=== PATIENT | female | born 1980 | race Caucasian/White ===

== ENCOUNTER 2018-10-16 10:11 | Outpatient (CLI) | payer BC ==
[~2018-10-16] VITALS: Ht 165.1 cm; Wt 70.5 kg
[~2018-10-16 10:11] MED LIST: IBU800 M1 PO; PERCOCET 325 MG1 TA2 PO
--- NOTE | 2018-10-16 10:15 | NUR ---
1015-35.5 WEEK G2L1 PATIENT OF DR. CARDENAS AMBULATORY TO LR4 FOR PREVIOUSLY ORDERED SECOND DOSE OF 12MG IM BETAMETHESONE. PLACED ON EFM. ASSESSMENT COMPLETE. 1047-12MG IM BETAMETHESONE GIVEN IN LEFT GLUTEAL 1100-DR. DAVILA ON UNIT, REVIWES EFM INTO SEE PATIENT. ORDERS TO DISCHARGE PATIENT AFTER 15 MIN REACTIVE STRIP. 1110-PATIENT OFF EFM. 1117-REVIEWED DISCHARGE INSTRUCTIONS. PATIENT AMBULATORY OFF UNIT.
[2018-10-16 10:30] VITALS: BP 127/85; PULSE 74; TEMP 98.1
[2018-10-16] MEDS ORDERED: PRENATAL (10:41)
[2018-10-16] MEDS ORDERED: CELESTONE30 MG/5 ML IM (10:41)
[2018-10-16 10:45] VITALS: BP 127/85; PULSE 74; TEMP 98.1
[2018-10-16 11:10] VITALS: BP 118/72; PULSE 82
== END 2018-10-16 11:17 | disposition home or self-care (01) ==
LOC: LDRO 10:11 → LDR 10:15 → LDRO 11:17
DX: O36.8930 Maternal care for other specified fetal problems, third trimester, not applicable or unspecified (principal); Z3A.35 35 weeks gestation of pregnancy
CPT/HCPCS: OP; J0702

== ENCOUNTER 2018-12-05 00:33 | Emergency (ER) | payer BC ==
[~2018-12-05] VITALS: Ht 165.1 cm; Wt 63.6 kg
[~2018-12-05 00:33] MED LIST changes: +CELESTONE30 MG/5 ML IM; +PRENATAL
[2018-12-05 00:45] VITALS: BP 115/78; TEMP 97.1
[2018-12-05 03:57] VITALS: PULSE 86
== END 2018-12-05 03:55 | disposition home or self-care (01) ==
LOC: COL.ER 00:33
DX: S90.31XA Contusion of right foot, initial encounter (principal); W22.8XXA Striking against or struck by other objects, initial encounter; Y92.009 Unspecified place in unspecified non-institutional (private) residence as the place of occurrence of the external cause; Z87.891 Personal history of nicotine dependence